=== PATIENT | male | born 1975 | race Caucasian/White ===

== ENCOUNTER 2016-09-01 13:42 | Emergency (ER) | payer OTHER ==
--- NOTE | ~2016-09-01 | CR173 ---
[facility]. [facility] A Service of [facility] RADIOLOGY TEXT RESULTS PATIENT: AMERICO FULTON LOCATION: SED : 79 UNIT #: [id number] AGE: [address]: Candace Montiel APRN SEX: M ORDER DR: [id number] [place] [id number] E MR#: [id number] Acc #: [id number] NAME: AMERICO FULTON : 1975 SEX: M STUDY DATE/TIME: 09/01/2016 13:28 UNIT: SED ROOM: STUDY DESCRIPTION: CR Knee 3 Views Rt Attending Physician: Candace Montiel A.P.R.N. Ordering Physician: Candace Montiel A.P.R.N. Primary Care Physician: No Primary Care Physician MEDICAL IMAGING REPORT This report is preliminary unless electronic signature is present. EXAM Right knee 3 views INDICATIONS 41-year-old male with pain in kneecap are for 2 days. Comparison with 01/23/2015. FINDINGS The joint spaces are preserved. There is patellar enthesopathy and also some enthesopathy at the insertion of the patellar tendon onto the tibia. No fracture, dislocation or joint effusion. IMPRESSION No acute findings. Dictated by... Anmol Robles M.D. THIS IS AN ELECTRONICALLY VERIFIED REPORT Anmol Robles M.D. at 09/01/2016 4:39 PM ARS/naomi TD: 09/01/2016 15:53 JOB #: [id number] MEDICAL IMAGING REPORT
[~2016-09-01 13:42] MED LIST: INDOMETHACIN50 MG PO; NO MEDICATIONS; VICODIN 5-3001 EACH PO; VOLTAREN75 MG PO
== END 2016-09-01 14:22 | disposition home or self-care (01) ==
LOC: SED 13:42
DX: S83.91XA Sprain of unspecified site of right knee, initial encounter (principal); M13.861 Other specified arthritis, right knee; I48.91 Unspecified atrial fibrillation; Z88.1 Allergy status to other antibiotic agents; Z88.0 Allergy status to penicillin; W18.42XA Slipping, tripping and stumbling without falling due to stepping into hole or opening, initial encounter; Y92.9 Unspecified place or not applicable
CPT/HCPCS: 29530; 73562; 96372; 99283; J1885